=== PATIENT | male | born 1990 | race African-American/Black ===

== ENCOUNTER → 2017-03-04 | Outpatient (CLI) | payer OTHER | LOC: COL.PUL 11-30 13:00 | DX: R06.02 Shortness of breath (principal); F17.210 Nicotine dependence, cigarettes, uncomplicated | CPT/HCPCS: J7674 ==

== ENCOUNTER → 2017-08-05 | Outpatient (CLI) | payer OTHER | LOC: COL.VAS 08:45 | DX: R06.02 Shortness of breath (principal) ==

== ENCOUNTER → 2018-01-25 | Outpatient (CLI) | payer OTHER | LOC: COL.PUL 01-10 13:00 | DX: R06.02 Shortness of breath (principal) | CPT/HCPCS: J7674 ==